=== PATIENT | male | born 1985 | race Caucasian/White ===

== ENCOUNTER 2018-07-05 05:18 | Observation (INO) | payer MEDICAID, OTHER ==
[2018-07-05 05:28] VITALS: O2SAT 96
--- NOTE | 2018-07-05 05:59 | ED PDOC ---
Arrival/HPI - General Chief Complaint: Chest Pain Time Seen by Provider: 07/05/18 05:56 Past Medical History - Infectious Disease Hx of Infectious Diseases: None - Tetanus Immunization Tetanus Immunization: Unknown - Psychiatric Hx Substance Use: Yes Family/Social History Smoking Status: Light Smoker < 10 Cigarettes Daily Hx Alcohol Use: No Hx Substance Use: Yes Substance used: cocaine Allergies/Home Meds Allergies/Adverse Reactions: Allergies No Known Allergies Allergy (Verified 07/05/18 05:21) Home Medications: Home Meds Medication Instructions Recorded Confirmed No Known Home Med 07/05/18 07/05/18 Physical Exam - Physical Exam Narrative Physical Exam (Text): Constitutional: No acute distress. Head: Normocephalic. Atraumatic. Eyes: PERRL. ENT: Moist mucous membranes. Neck: Supple. Cardiovascular: Regular rate. Chest: No tenderness. Respiratory: Clear to auscultation bilaterally. GI: Soft. Nontender. Nondistended. Back: No CVA tenderness. Musculoskeletal: No tenderness or swelling of extremities. Skin: No rash. Neurologic: Alert, no focal deficit. Vital Signs Temp Pulse Resp BP Pulse Ox 07/05/18 05:23 98.3 F 89 19 136/79 96 Medical Decision Making - RAD Interpretation Radiology Orders: 07/05/18 05:58 CHEST PORTABLE [RAD] Stat - Medication Orders Current Medication Orders: Aspirin (Aspirin) 325 mg PO STAT STA Stop: 07/05/18 05:59 Disposition/Present on Arrival - Present on Arrival History of DVT/PE: No History of Uncontrolled Diabetes: No Urinary Catheter: No History of Decub. Ulcer: No History Surgical Site Infection Following: None - Disposition
[2018-07-05 06:37] LABS: BASO # 0.01 K/mm3 (0.0-2.0); BASO % 0.1 % (0.0-3.0); EOS # 0.3 (0.0-0.7); EOS % 2.5 % (1.5-5.0); HEMOGLOBIN 16.6 g/dL (14.0-18.0); LYMPH # 3.1 (1.2-3.4); LYMPH % 26.6 % (22.0-35.0); MEAN CELL VOLUME 88.1 fl (80.0-105.0); MEAN CORPUSCULAR HEMOGLOBIN 31.4 pg (25.0-35.0); MEAN CORPUSCULAR HGB CONC 35.7 g/dl (31.0-37.0); MEAN PLATELET VOLUME 10.7 fl (7.0-11.0); MONO # 0.5 (0.1-0.6); MONO % 4.4 % (1.0-6.0); RBC 5.28 10^6/uL (3.5-6.1); RED CELL DISTRIBUTION WIDTH 12.3 % (11.5-14.5); WHITE BLOOD COUNT 11.8 10^3/uL (4.5-11.0)
[2018-07-05 06:46] LABS: TROPONIN I < 0.01 ng/mL
--- NOTE | 2018-07-05 06:46 | ED PDOC ---
Arrival/HPI - General Chief Complaint: Chest Pain Time Seen by Provider: 07/05/18 05:56 - History of Present Illness Narrative History of Present Illness (Text): 33 y/o M c no PMHx p/w chest pain x 4 hours. Midchest pressure, non radiating with L arm soreness, clammy skin, dyspnea. States used cocaine about 3 hours prior to this. Denies fever, vomiting. Past Medical History - Infectious Disease Hx of Infectious Diseases: None - Tetanus Immunization Tetanus Immunization: Unknown - Psychiatric Hx Substance Use: Yes Family/Social History Family/Social History: No Known Family HX Smoking Status: Light Smoker < 10 Cigarettes Daily Hx Alcohol Use: No Hx Substance Use: Yes Substance used: cocaine Allergies/Home Meds Allergies/Adverse Reactions: Allergies No Known Allergies Allergy (Verified 07/05/18 05:21) Review of Systems - Physician Review All systems were reviewed & negative as marked: Yes - Review of Systems Constitutional: absent: Fevers Gastrointestinal: absent: Vomiting Physical Exam - Physical Exam Narrative Physical Exam (Text): gen nad head nc/at eyes perrl ent mmm neck supple chest no tenderness cv reg rate lungs cta b/l abd soft, nt back no cva tenderness skin no rash neuro alert Vital Signs Temp Pulse Resp BP Pulse Ox 07/05/18 05:23 98.3 F 89 19 136/79 96 Medical Decision Making ED Course and Treatment: ekg 83 bpm, nsr, no ST elevations CXR no acute disease. ASA administered. Ready for admission, paged medical service, awaiting their call back. - RAD Interpretation Radiology Orders: 07/05/18 05:58 CHEST PORTABLE [RAD] Stat - Medication Orders Current Medication Orders: Discontinued Medications Aspirin (Aspirin) 325 mg PO STAT STA Stop: 07/05/18 05:59 Last Admin: 07/05/18 06:10 Dose: 325 mg Disposition/Present on Arrival - Present on Arrival Any Indicators Present on Arrival: No History of DVT/PE: No History of Uncontrolled Diabetes: No Urinary Catheter: No History of Decub. Ulcer: No History Surgical Site Infection Following: None - Disposition Have Diagnosis and Disposition been Completed?: Yes Diagnosis: Chest pain Disposition: HOSPITALIZED Disposition Time: 07:00 Patient Plan: Observation, Telemetry Condition: STABLE
[2018-07-05 06:55] LABS: ALB/GLOB RATIO 1.2 (1.1-1.8); ALBUMIN 4.1 g/dL (3.0-4.8); ALT/SGPT 132 U/L (7-56); AST/SGOT 50 U/L (17-59); BLOOD UREA NITROGEN 9 mg/dL (7-21); CALCIUM 8.9 mg/dL (8.4-10.5); GFR NON-AFRICAN AMERICAN > 60
--- NOTE | 2018-07-05 07:19 | ED PDOC ---
Physical Exam Vital Signs Temp Pulse Resp BP Pulse Ox 07/05/18 05:23 98.3 F 89 19 136/79 96 Medical Decision Making ED Course and Treatment: 07/05/18 07:17 received sign out from dr. hernandes at 0700. Patient to be admitted for chest pain, rule out acs with positive cocaine. Admit accepted by dr. mitchell to the hospitalist service. observation. - Lab Interpretations Lab Results: Troponin I < 0.01 ng/mL 07/05/18 06:10 Total Bilirubin 1.0 mg/dL (0.2-1.3) 07/05/18 06:10 AST 50 U/L (17-59) 07/05/18 06:10 ALT 132 U/L (7-56) H 07/05/18 06:10 Alkaline Phosphatase 113 U/L (38-126) 07/05/18 06:10 Total Protein 7.5 g/dL (5.8-8.3) 07/05/18 06:10 Albumin 4.1 g/dL (3.0-4.8) 07/05/18 06:10 Globulin 3.5 gm/dL 07/05/18 06:10 Albumin/Globulin Ratio 1.2 (1.1-1.8) 07/05/18 06:10 - RAD Interpretation Radiology Orders: 07/05/18 05:58 CHEST PORTABLE [RAD] Stat - Medication Orders Current Medication Orders: Discontinued Medications Aspirin (Aspirin) 325 mg PO STAT STA Stop: 07/05/18 05:59 Last Admin: 07/05/18 06:10 Dose: 325 mg Disposition/Present on Arrival - Present on Arrival Any Indicators Present on Arrival: No History of DVT/PE: No History of Uncontrolled Diabetes: No Urinary Catheter: No History of Decub. Ulcer: No History Surgical Site Infection Following: None - Disposition Have Diagnosis and Disposition been Completed?: Yes Diagnosis: Chest pain Disposition: HOSPITALIZED Disposition Time: 07:19 Patient Plan: Admission Condition: STABLE Discharge Instructions (ExitCare): Chest Pain (ED) Forms: [employer] ([place]ayan)
[2018-07-05] MEDS ORDERED: Potassium Chloride 20 mEq ER Tab PO STA (07:21)
--- NOTE | 2018-07-05 07:34 | CP.PCM.HP ---
<HectorSusanne - Last Filed: 07/05/18 08:19> History of Present Illness - History of Present Illness History of Present Illness: HISTORY & PHYSICAL NOTE FOR HOSPITALIST SERVICE- DR. RADHA Skinner Hector PGY1 33 y/o M with no significant PMHx presents to ED with complaints of R sided "pinching" like chest pain that started at 4am with associated "throbbing-like" L-sided bicep pain that lasted about 20 seconds and subsequently resolved. He reports he was "partying" yesterday around midnight, snorting cocaine, without any other drug use. He came home and was laying down on his right side when he noticed the pain. He reports he searched symptoms on internet which prompted his visit to ED. He denies any previous cardiac problems, no shortness of breath as a child, and doesn't have symptoms on exertion. Upon interview, he is denying any complaints and is resting comfortably. He has fiance at bedside. He denies fevers, chills, headache, dizziness, chest pain, palpitations, shortness of breath, nausea, vomiting, constipation, diarrhea, dysuria, hematuria. PMH: Denies All: NKDA PSH: Denies SH: snorts cocaine occasionally for several years, smokes 1pack/day x 3yrs. Denies ETOH, IV drug use. Hosp: Denies FH: Father: , hepatitis C, cirrhosis, cancer. Mother: alive, no PMH. Meds: Denies PMD: Dr. Mancilla, [facility] Present on Admission - Present on Admission Any Indicators Present on Admission: No Review of Systems - Review of Systems Review of Systems: per HPI Past Patient History - Infectious Disease Hx of Infectious Diseases: None - Tetanus Immunizations Tetanus Immunization: Unknown - Past Social History Smoking Status: Light Smoker < 10 Cigarettes Daily - PSYCHIATRIC Hx Substance Use: Yes - SURGICAL HISTORY Hx Surgeries: No Meds Home Medications: Home Medication List Medication Instructions Recorded Confirmed Type Aspirin [Ecotrin] 81 mg PO DAILY #30 tabec 07/05/18 Rx Blood Sugar Diagnostic [Blood 1 each MC TID 30 Days #90 strip 07/05/18 Rx Glucose Test] Blood-Glucose Meter [Easygluco] 1 each MC DAILY 1 Days #1 kit 07/05/18 Rx GlipiZIDE [Glucotrol] 5 mg PO ACB #30 tab 07/05/18 Rx Lancets [Onetouch Lancets] 1 each MC TID 30 Days #90 each 07/05/18 Rx Nicotine 14 mg/24 hr [Nicoderm CQ] 1 patch TD DAILY #30 patch 07/05/18 Rx Allergies/Adverse Reactions: Allergies Allergy/AdvReac Type Severity Reaction Status Date / Time No Known Allergies Allergy Verified 07/05/18 05:21 Results - Vital Signs Recent Vital Signs: Last Vital Signs Temp 98.3 F 07/05/18 05:23 Pulse 89 07/05/18 05:23 Resp 19 07/05/18 05:23 BP 136/79 07/05/18 05:23 Pulse Ox 96 07/05/18 05:23 - Labs Result Diagrams: 07/05/18 06:10 07/05/18 06:10 Labs: Laboratory Results - last 24 hr 07/05/18 07/05/18 06:10 06:10 WBC 11.8 H RBC 5.28 Hgb 16.6 Hct 46.5 MCV 88.1 MCH 31.4 MCHC 35.7 RDW 12.3 Plt Count 178 MPV 10.7 Neut % (Auto) 66.4 Lymph % (Auto) 26.6 [place] % (Auto) 4.4 Eos % (Auto) 2.5 Baso % (Auto) 0.1 Lymph # (Auto) 3.1 [place] # (Auto) 0.5 Eos # (Auto) 0.3 Baso # (Auto) 0.01 Absolute Neuts (auto) 7.82 H Sodium 136 Potassium 3.3 L Chloride 99 Carbon Dioxide 27 Anion Gap 14 BUN 9 Creatinine 0.8 Est GFR ( Amer) > 60 Est GFR (Non-Af Amer) > 60 Random Glucose 304 H* Calcium 8.9 Total Bilirubin 1.0 AST 50 ALT 132 H Alkaline Phosphatase 113 Total Creatine Kinase 214 Troponin I < 0.01 Total Protein 7.5 Albumin 4.1 Globulin 3.5 Albumin/Globulin Ratio 1.2 Assessment & Plan - Assessment and Plan (Free Text) Assessment: 33 y/o M with PMHx cocaine abuse admitted for chest pain and to rule out ACS Plan: Chest pain, r/o ACS EKG revealed NSR, No ST/T wave changes. Initial troponin (-). Given aspirin 325 in ED f/u repeat troponins Q6h, repeat EKG Cardiology consulted f/u Hgb A1C, TSH, FT4, lipid panel Elevated Glucose Denies hx of DM2 will f/u A1c Insulin sliding scale started. 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 UDS ordered for confirmation Nicotine patch ordered Hypokalemia Repleted with po KCl Hypomagnesemia repleted with MgSO4 IVPB GERD started pepcid DVT/GI PPx: SCD/pepcid Case reviewed with attending physician, Dr. Radha Young PGY1 <Tennille Vo - Last Filed: 07/06/18 13:41> Results - Vital Signs Recent Vital Signs: Last Vital Signs Temp 97.9 F 07/05/18 17:30 Pulse 73 07/05/18 17:30 Resp 18 07/05/18 17:30 BP 123/81 07/05/18 17:30 Pulse Ox 96 07/05/18 07:47 - Labs Result Diagrams: 07/05/18 06:10 07/05/18 06:10 Labs: Laboratory Results - last 24 hr 07/05/18 07/05/18 07/05/18 13:15 14:10 14:10 POC Glucose (mg/dL) Troponin I < 0.01 Urine Color Yellow Urine Appearance Clear Urine pH 6.0 Ur Specific [place] 1.025 Urine Protein Negative Urine Glucose (UA) >=1000 Urine Ketones Trace H Urine Blood Negative Urine Nitrate Negative Urine Bilirubin Negative Urine Urobilinogen 1.0 H Ur Leukocyte Esterase Negative Urine Opiates Screen Negative Urine Methadone Screen Negative Ur Barbiturates Screen Negative Ur Phencyclidine Scrn Negative Ur Amphetamines Screen Negative U Benzodiazepines Scrn Negative U Oth Cocaine Metabols Positive H U Cannabinoids Screen Negative 07/05/18 07/05/18 16:10 17:20 POC Glucose (mg/dL) 331 H Troponin I < 0.01 Urine Color Urine Appearance Urine pH Ur Specific [place] Urine Protein Urine Glucose (UA) Urine Ketones Urine Blood Urine Nitrate Urine Bilirubin Urine Urobilinogen Ur Leukocyte Esterase Urine Opiates Screen Urine Methadone Screen Ur Barbiturates Screen Ur Phencyclidine Scrn Ur Amphetamines Screen U Benzodiazepines Scrn U Oth Cocaine Metabols U Cannabinoids Screen Attending/Attestation - Attestation I have personally seen and examined this patient.: Yes I have fully participated in the care of the patient.: Yes I have reviewed all pertinent clinical information: Yes Notes (Text): 07/06/18 13:37 Attending note ; Patient seen and examined with resident in ER. Patient's girlfriend by the bedside. Patient is currently alert and awake. Denies any chest pain, shortness of breath. Denies any nausea, vomiting Denies any urinary, bowel symptoms. Patient is a 33-year-old male with PMHx of PTSD, anxiety, smoking presents to ED with complaints of R sided "pinching" like chest pain that started at 4am with associated "throbbing-like" L-sided bicep pain that lasted about 20 seconds and subsequently resolved. He reports he was "partying" yesterday around mid night, snorting cocaine. 1. Chest pain; EKG showed no acute ST-T changes. Troponins times negative possibly related to vasospasm caused by cocaine. Admit to telemetry. Cardiac enzymes x3 ordered. Cardiology evaluation requested. 2. cocaine abuse; complete cessation is strongly advised . 3. Active smoking; smoking cessation is strongly advised. 4. PTSD; needs follow-up with psychiatrist as outpatient. 5. Elevated blood sugar. Dietary education given . Hemoglobin A1c ordered. Upon discharge the patient will follow up with [facility]. 07/06/18 13:40
[2018-07-05 08:12] LABS: FREE T4 1.49 ng/dL (0.78-2.19)
--- NOTE | 2018-07-05 08:18 | RAD ---
HISTORY: r/o PNA COMPARISON: None available. TECHNIQUE: Chest, one view. FINDINGS: Examination limited by habitus. LUNGS: No focal consolidation. PLEURA: No significant pleural effusion identified. No definite pneumothorax . CARDIOVASCULAR: The cardiomediastinal silhouette appears within normal limits of size. No significant atherosclerotic calcification present. OSSEOUS STRUCTURES: No acute osseous abnormality identified. VISUALIZED UPPER ABDOMEN: Unremarkable. OTHER FINDINGS: None. IMPRESSION: No acute findings identified.
[2018-07-05] MEDS ORDERED: Magnesium Sulfate 2 gm/50 ml 2 GM/50 ML BAG IVPB ONE (08:39)
[2018-07-05] MEDS: Insulin Reg-LOW-Coverage SC SCH ×2 (12:09→18:22)
[2018-07-05 12:55] VITALS: RESP 18
[2018-07-05] MEDS ORDERED: Potassium Chloride 20 mEq ER Tab PO ONE (14:09)
[2018-07-05 14:15] LABS: URINE BILIRUBIN NEGATIVE (NEGATIVE); URINE BLOOD NEGATIVE (NEGATIVE); URINE GLUCOSE (UA) >=1000 mg/dL (NEGATIVE); URINE LEUKOCYTE ESTERASE NEGATIVE Leu/uL (NEGATIVE); URINE PROTEIN NEGATIVE mg/dL (<30 mg/dL)
[2018-07-05 14:21] LABS: URINE APPEARANCE CLEAR (CLEAR); URINE COLOR YELLOW (YELLOW)
[2018-07-05 14:36] VITALS: BMI 34.0
[2018-07-05] MEDS ORDERED: Pneumococcal 23-Valent Vaccine IM ONE (14:36)
[2018-07-05 14:39] LABS: BARBITURATES, UR NEGATIVE (NEGATIVE)
[2018-07-05 14:46] LABS: BENZODIAZEPINES, UR NEGATIVE (NEGATIVE); OPIATES, UR NEGATIVE (NEGATIVE); PHENCYCLIDINE, UR NEGATIVE (NEGATIVE)
--- NOTE | 2018-07-05 15:44 | CP.PCM.DIS ---
<Susanne Young - Last Filed: 07/06/18 13:44> Provider - Provider Date of Admission: 07/05/18 07:15 Attending physician: Tennille Vo MD Consults: 07/05/18 07:27 Cardiology Consult Stat Comment: Consulting Provider: Himanshu Sánchez Consulting Physician: Himanshu Sánchez Reason for Consult: CP r/o ACS, cocaine use 07/05/18 12:10 Diabetic Education Referral Routine Comment: Physician Instructions: Reason For Exam: new ly diagnosed diabetic 07/05/18 14:36 Respiratory Therapy Referral Routine Comment: smokes 1 ppd Physician Instructions: Reason For Exam: assess 07/05/18 14:46 Diabetic Education Referral Routine Comment: blood sugar 263 Physician Instructions: Reason For Exam: assess Time Spent in preparation of Discharge (in minutes): 45 Diagnosis - Discharge Diagnosis (1) Chest pain Status: Resolved (2) Cocaine abuse Status: Resolved (3) Diabetes Status: Chronic (4) Newly diagnosed diabetes Status: Chronic (5) Tobacco use disorder Status: Chronic Hospital Course - Lab Results Lab Results: Most Recent Lab Values WBC 11.8 10^3/uL (4.5-11.0) H 07/05/18 06:10 RBC 5.28 10^6/uL (3.5-6.1) 07/05/18 06:10 Hgb 16.6 g/dL (14.0-18.0) 07/05/18 06:10 Hct 46.5 % (42.0-52.0) 07/05/18 06:10 MCV 88.1 fl (80.0-105.0) 07/05/18 06:10 MCH 31.4 pg (25.0-35.0) 07/05/18 06:10 MCHC 35.7 g/dl (31.0-37.0) 07/05/18 06:10 RDW 12.3 % (11.5-14.5) 07/05/18 06:10 Plt Count 178 10^3/uL (120.0-450.0) 07/05/18 06:10 MPV 10.7 fl (7.0-11.0) 07/05/18 06:10 Neut % (Auto) 66.4 % (50.0-68.0) 07/05/18 06:10 Lymph % (Auto) 26.6 % (22.0-35.0) 07/05/18 06:10 [place] % (Auto) 4.4 % (1.0-6.0) 07/05/18 06:10 Eos % (Auto) 2.5 % (1.5-5.0) 07/05/18 06:10 Baso % (Auto) 0.1 % (0.0-3.0) 07/05/18 06:10 Lymph # (Auto) 3.1 (1.2-3.4) 07/05/18 06:10 [place] # (Auto) 0.5 (0.1-0.6) 07/05/18 06:10 Eos # (Auto) 0.3 (0.0-0.7) 07/05/18 06:10 Baso # (Auto) 0.01 K/mm3 (0.0-2.0) 07/05/18 06:10 Absolute Neuts (auto) 7.82 (1.4-6.5) H 07/05/18 06:10 Sodium 136 mmol/L (132-148) 07/05/18 06:10 Potassium 3.3 mmol/L (3.6-5.0) L 07/05/18 06:10 Chloride 99 mmol/L (98-107) 07/05/18 06:10 Carbon Dioxide 27 mmol/L (21-33) 07/05/18 06:10 Anion Gap 14 (10-20) 07/05/18 06:10 BUN 9 mg/dL (7-21) 07/05/18 06:10 Creatinine 0.8 mg/dl (0.8-1.5) 07/05/18 06:10 Est GFR ( Amer) > 60 07/05/18 06:10 Est GFR (Non-Af Amer) > 60 07/05/18 06:10 POC Glucose (mg/dL) 263 mg/dL (65-110) H 07/05/18 11:24 Random Glucose 304 mg/dL (70-110) H* 07/05/18 06:10 Hemoglobin A1c 10.0 % (4.2-6.5) H 07/05/18 06:22 Calcium 8.9 mg/dL (8.4-10.5) 07/05/18 06:10 Phosphorus 4.1 mg/dL (2.5-4.5) 07/05/18 06:22 Magnesium 1.6 mg/dL (1.7-2.2) L 07/05/18 06:22 Total Bilirubin 1.0 mg/dL (0.2-1.3) 07/05/18 06:10 AST 50 U/L (17-59) 07/05/18 06:10 ALT 132 U/L (7-56) H 07/05/18 06:10 Alkaline Phosphatase 113 U/L (38-126) 07/05/18 06:10 Total Creatine Kinase 214 U/L (35-230) 07/05/18 06:10 Troponin I < 0.01 ng/mL 07/05/18 13:15 Total Protein 7.5 g/dL (5.8-8.3) 07/05/18 06:10 Albumin 4.1 g/dL (3.0-4.8) 07/05/18 06:10 Globulin 3.5 gm/dL 07/05/18 06:10 Albumin/Globulin Ratio 1.2 (1.1-1.8) 07/05/18 06:10 Triglycerides 164 mg/dL (35-160) H 07/05/18 06:22 Cholesterol 154 mg/dL (130-200) 07/05/18 06:22 LDL Cholesterol Direct 107 mg/dL (0-129) 07/05/18 06:22 HDL Cholesterol 33 mg/dL (29-60) 07/05/18 06:22 Free T4 1.49 ng/dL (0.78-2.19) 07/05/18 06:22 TSH 3rd Generation 2.92 mIU/mL (0.46-4.68) 07/05/18 06:22 Urine Color Yellow (YELLOW) 07/05/18 14:10 Urine Appearance Clear (CLEAR) 07/05/18 14:10 Urine pH 6.0 (4.7-8.0) 07/05/18 14:10 Ur Specific [place] 1.025 (1.005-1.035) 07/05/18 14:10 Urine Protein Negative mg/dL (<30 mg/dL) 07/05/18 14:10 Urine Glucose (UA) >=1000 mg/dL (NEGATIVE) 07/05/18 14:10 Urine Ketones Trace mg/dL (NEGATIVE) H 07/05/18 14:10 Urine Blood Negative (NEGATIVE) 07/05/18 14:10 Urine Nitrate Negative (NEGATIVE) 07/05/18 14:10 Urine Bilirubin Negative (NEGATIVE) 07/05/18 14:10 Urine Urobilinogen 1.0 E.U./dL (<1 E.U./dL) H 07/05/18 14:10 Ur Leukocyte Esterase Negative Kevin/uL (NEGATIVE) 07/05/18 14:10 Urine Opiates Screen Negative (NEGATIVE) 07/05/18 14:10 Urine Methadone Screen Negative (NEGATIVE) 07/05/18 14:10 Ur Barbiturates Screen Negative (NEGATIVE) 07/05/18 14:10 Ur Phencyclidine Scrn Negative (NEGATIVE) 07/05/18 14:10 Ur Amphetamines Screen Negative (NEGATIVE) 07/05/18 14:10 U Benzodiazepines Scrn Negative (NEGATIVE) 07/05/18 14:10 U Oth Cocaine Metabols Positive (NEGATIVE) H 07/05/18 14:10 U Cannabinoids Screen Negative (NEGATIVE) 07/05/18 14:10 - Hospital Course Hospital Course: Upon Admission: 33 y/o M with no significant PMHx presents to ED with complaints of R sided "pinching" like chest pain that started at 4am with associated "throbbing-like" L-sided bicep pain that lasted about 20 seconds and subsequently resolved. He reports he was "partying" yesterday around midnight, snorting cocaine, without any other drug use. He came home and was laying down on his right side when he noticed the pain. He reports he searched symptoms on internet which prompted his visit to ED. He denies any previous cardiac problems, no shortness of breath as a child, and doesn't have symptoms on exertion. Upon interview, he is denying any complaints and is resting comfortably. He has fiance at bedside. Hospital Course: Pt's EKG showed no ST/T wave changes. Troponin levels were (-) x 3. Pt's chest pain had resolved. He had no episodes of chest pain while in the hospital. Pts initial glucose in ED was 304 and his Hgb A1c was found to be 10%. Pts UDS was positive for cocaine. He was evaluated and deemed stable for discharged by cardiology. Pt was counselled extensively on cocaine cessation, tobacco cessation and diabetes control. All questions were answered by patient and Upon Discharge: Pt is feeling better. Vital signs/labs wnl. Troponins negative x 3. Cardiology saw patient and deemed pt stable to d/c. Pt to discharged with glipizide 5mg, aspirin 81mg, nicotine patch Discharge Exam - Head Exam Head Exam: ATRAUMATIC, NORMAL INSPECTION - Eye Exam Eye Exam: EOMI, Normal appearance - ENT Exam ENT Exam: Mucous Membranes Moist - Neck Exam Neck exam: Normal Inspection - Respiratory Exam Respiratory Exam: NORMAL BREATHING PATTERN, UNREMARKABLE - Cardiovascular Exam Cardiovascular Exam: REGULAR RHYTHM, +S1, +S2 - GI/Abdominal Exam GI & Abdominal Exam: Normal Bowel Sounds, Soft - Extremities Exam Extremities exam: normal inspection - Back Exam Back exam: NORMAL INSPECTION - Neurological Exam Neurological exam: Alert, Oriented x3 - Psychiatric Exam Psychiatric exam: Normal Affect, Normal Mood - Skin Skin Exam: Dry, Intact, Warm Discharge Plan - Discharge Medications Prescriptions: Aspirin [Ecotrin] 81 mg PO DAILY #30 tabec Blood Sugar Diagnostic [Blood Glucose Test] 1 each MC TID 30 Days #90 strip Blood-Glucose Meter [Easygluco] 1 each MC DAILY 1 Days #1 kit GlipiZIDE [Glucotrol] 5 mg PO ACB #30 tab Lancets [Onetouch Lancets] 1 each MC TID 30 Days #90 each Nicotine 14 mg/24 hr [Nicoderm CQ] 1 patch TD DAILY #30 patch - Follow Up Plan Condition: STABLE Disposition: HOME/ ROUTINE Instructions: Cocaine Use Disorder, Chest Pain (DC), Diabetes Type 2 (DC), Drug Abuse and Drug Addiction (DC), Diabetic Meal Planning , Heart Disease in Diabetics , Diabetes and Diet, How to Keep Track of Your Blood Sugar Additional Instructions: Please follow up with your primary care doctor within 1 week of discharge from the hospital. Please discuss your hospital stay. Please discuss your diagnosis of diabetes Please discuss an outpatient echocardiogram Please consume a carbohydrate consistent diet. Please avoid sugary foods and drinks Please exercise regularly Please stop using cocaine Please stop smoking You have been started on new medications: Aspirin 81mg. Please take 1 tablet by mouth daily Glipizide 5mg. Please take 1 tablet by mouth before breakfast daily Please take these medications as directed If your symptoms return or you experience new symptoms, please go to the nearest emergency room Referrals: Pavel Mancilla MD [Medical Doctor] - Himanshu Sánchez MD [Staff Provider] - <Tennille Vo - Last Filed: 07/06/18 15:58> Provider - Provider Date of Admission: 07/05/18 07:15 Attending physician: Tennille Vo MD Consults: 07/05/18 07:27 Cardiology Consult Stat Comment: Consulting Provider: Himanshu Sánchez Consulting Physician: Himanshu Sánchez Reason for Consult: CP r/o ACS, cocaine use 07/05/18 12:10 Diabetic Education Referral Routine Comment: Physician Instructions: Reason For Exam: new ly diagnosed diabetic 07/05/18 14:36 Respiratory Therapy Referral Routine Comment: smokes 1 ppd Physician Instructions: Reason For Exam: assess 07/05/18 14:46 Diabetic Education Referral Routine Comment: blood sugar 263 Physician Instructions: Reason For Exam: assess Hospital Course - Lab Results Lab Results: Most Recent Lab Values WBC 11.8 10^3/uL (4.5-11.0) H 07/05/18 06:10 RBC 5.28 10^6/uL (3.5-6.1) 07/05/18 06:10 Hgb 16.6 g/dL (14.0-18.0) 07/05/18 06:10 Hct 46.5 % (42.0-52.0) 07/05/18 06:10 MCV 88.1 fl (80.0-105.0) 07/05/18 06:10 MCH 31.4 pg (25.0-35.0) 07/05/18 06:10 MCHC 35.7 g/dl (31.0-37.0) 07/05/18 06:10 RDW 12.3 % (11.5-14.5) 07/05/18 06:10 Plt Count 178 10^3/uL (120.0-450.0) 07/05/18 06:10 MPV 10.7 fl (7.0-11.0) 07/05/18 06:10 Neut % (Auto) 66.4 % (50.0-68.0) 07/05/18 06:10 Lymph % (Auto) 26.6 % (22.0-35.0) 07/05/18 06:10 [place] % (Auto) 4.4 % (1.0-6.0) 07/05/18 06:10 Eos % (Auto) 2.5 % (1.5-5.0) 07/05/18 06:10 Baso % (Auto) 0.1 % (0.0-3.0) 07/05/18 06:10 Lymph # (Auto) 3.1 (1.2-3.4) 07/05/18 06:10 [place] # (Auto) 0.5 (0.1-0.6) 07/05/18 06:10 Eos # (Auto) 0.3 (0.0-0.7) 07/05/18 06:10 Baso # (Auto) 0.01 K/mm3 (0.0-2.0) 07/05/18 06:10 Absolute Neuts (auto) 7.82 (1.4-6.5) H 07/05/18 06:10 Sodium 136 mmol/L (132-148) 07/05/18 06:10 Potassium 3.3 mmol/L (3.6-5.0) L 07/05/18 06:10 Chloride 99 mmol/L (98-107) 07/05/18 06:10 Carbon Dioxide 27 mmol/L (21-33) 07/05/18 06:10 Anion Gap 14 (10-20) 07/05/18 06:10 BUN 9 mg/dL (7-21) 07/05/18 06:10 Creatinine 0.8 mg/dl (0.8-1.5) 07/05/18 06:10 Est GFR ( Amer) > 60 07/05/18 06:10 Est GFR (Non-Af Amer) > 60 07/05/18 06:10 POC Glucose (mg/dL) 331 mg/dL (65-110) H 07/05/18 16:10 Random Glucose 304 mg/dL (70-110) H* 07/05/18 06:10 Hemoglobin A1c 10.0 % (4.2-6.5) H 07/05/18 06:22 Calcium 8.9 mg/dL (8.4-10.5) 07/05/18 06:10 Phosphorus 4.1 mg/dL (2.5-4.5) 07/05/18 06:22 Magnesium 1.6 mg/dL (1.7-2.2) L 07/05/18 06:22 Total Bilirubin 1.0 mg/dL (0.2-1.3) 07/05/18 06:10 AST 50 U/L (17-59) 07/05/18 06:10 ALT 132 U/L (7-56) H 07/05/18 06:10 Alkaline Phosphatase 113 U/L (38-126) 07/05/18 06:10 Total Creatine Kinase 214 U/L (35-230) 07/05/18 06:10 Troponin I < 0.01 ng/mL 07/05/18 17:20 Total Protein 7.5 g/dL (5.8-8.3) 07/05/18 06:10 Albumin 4.1 g/dL (3.0-4.8) 07/05/18 06:10 Globulin 3.5 gm/dL 07/05/18 06:10 Albumin/Globulin Ratio 1.2 (1.1-1.8) 07/05/18 06:10 Triglycerides 164 mg/dL (35-160) H 07/05/18 06:22 Cholesterol 154 mg/dL (130-200) 07/05/18 06:22 LDL Cholesterol Direct 107 mg/dL (0-129) 07/05/18 06:22 HDL Cholesterol 33 mg/dL (29-60) 07/05/18 06:22 Free T4 1.49 ng/dL (0.78-2.19) 07/05/18 06:22 TSH 3rd Generation 2.92 mIU/mL (0.46-4.68) 07/05/18 06:22 Urine Color Yellow (YELLOW) 07/05/18 14:10 Urine Appearance Clear (CLEAR) 07/05/18 14:10 Urine pH 6.0 (4.7-8.0) 07/05/18 14:10 Ur Specific [place] 1.025 (1.005-1.035) 07/05/18 14:10 Urine Protein Negative mg/dL (<30 mg/dL) 07/05/18 14:10 Urine Glucose (UA) >=1000 mg/dL (NEGATIVE) 07/05/18 14:10 Urine Ketones Trace mg/dL (NEGATIVE) H 07/05/18 14:10 Urine Blood Negative (NEGATIVE) 07/05/18 14:10 Urine Nitrate Negative (NEGATIVE) 07/05/18 14:10 Urine Bilirubin Negative (NEGATIVE) 07/05/18 14:10 Urine Urobilinogen 1.0 E.U./dL (<1 E.U./dL) H 07/05/18 14:10 Ur Leukocyte Esterase Negative Kevin/uL (NEGATIVE) 07/05/18 14:10 Urine Opiates Screen Negative (NEGATIVE) 07/05/18 14:10 Urine Methadone Screen Negative (NEGATIVE) 07/05/18 14:10 Ur Barbiturates Screen Negative (NEGATIVE) 07/05/18 14:10 Ur Phencyclidine Scrn Negative (NEGATIVE) 07/05/18 14:10 Ur Amphetamines Screen Negative (NEGATIVE) 07/05/18 14:10 U Benzodiazepines Scrn Negative (NEGATIVE) 07/05/18 14:10 U Oth Cocaine Metabols Positive (NEGATIVE) H 07/05/18 14:10 U Cannabinoids Screen Negative (NEGATIVE) 07/05/18 14:10 Attending/Attestation - Attestation I have personally seen and examined this patient.: Yes I have fully participated in the care of the patient.: Yes I have reviewed all pertinent clinical information, including history, physical exam and plan: Yes Notes (Text): 07/06/18 15:57 Attending note ; Patient seen and examined with resident. Patient's girlfriend by the bedside. Patient is currently alert and awake. Denies any chest pain, shortness of breath. Denies any nausea, vomiting Denies any urinary, bowel symptoms. Patient is a 33-year-old male with PMHx of PTSD, anxiety, smoking presents to ED with complaints of R sided "pinching" like chest pain that started at 4am with associated "throbbing-like" L-sided bicep pain that lasted about 20 seconds and subsequently resolved. He reports he was "partying" yesterday around midnight, snorting cocaine. 1. Chest pain; EKG showed no acute ST-T changes. Troponins times negative possibly related to vasospasm caused by cocaine. Cardiac enzymes x3 negative. Cardiology evaluation appreciated. Outpatient stress test recommended. 2. cocaine abuse; complete cessation is strongly advised . 3. Active smoking; smoking cessation is strongly advised. 4. PTSD; needs follow-up with psychiatrist as outpatient. 5. Elevated blood sugar. Dietary education given . Hemoglobin A1c is 10. Started on glipizide. Prescription for glucometer and supplies given. Advised to follow-up with PMD within 3 to 5 days. Patient will be discharged home today. Upon discharge the patient will follow up with [place] [facility]. 07/06/18 15:58
--- NOTE | 2018-07-05 16:17 | CARD ---
APPROVED REPORT Date of service: 07/05/2018 EKG Measurement Heart [id number] CT [id number] [id number] <Conclusion> Normal sinus rhythm Moderate voltage criteria for LVH, may be normal variant Borderline ECG
[2018-07-05 17:30] VITALS: BP 123/81; PULSE 73; TEMP 97.9
--- NOTE | 2018-07-05 22:14 | CON ---
DATE: 07/05/2018 LOCATION: The patient is in room 261, bed 2. REASON FOR CONSULTATION: Chest pain. HISTORY OF PRESENT ILLNESS: A 33-year-old male admitted with the history that he has three types of pain, one was the numbness of the left upper arm, and second was the sharp pain on the anterior axillary line of right chest which was only for few secondary then he had tightness in the epigastric area and at times it was also throbbing like pain. The patient has no prior history of exertional chest pain, this pain lasted about 20 minutes except the pinching pain on the right chest was only for 1 or 2 seconds. The patient denies any nausea or vomiting associated with this episode. Denies any dizziness or palpitation. The patient stated that he was in a constitution party last night and he was snorting cocaine. The patient right now is free of all those pains. Denies any shortness of breath or palpitation. PAST MEDICAL HISTORY: Not significant. PERSONAL HISTORY: Smokes one pack a day and denies drinking, but has history of snorting of cocaine occasionally for several years off and on. No IV drug abuse. ALLERGIES: DENIES ANY ALLERGIES. MEDICATIONS: He was not taking any medication at home. FAMILY HISTORY: Father had cirrhosis of liver and cardiac problems. REVIEW OF SYSTEMS: All the systems reviewed, positive mentioned in the history, others were negative. PHYSICAL EXAMINATION: VITAL SIGNS: Blood pressure 131/64, respirations 17, pulse 79 and temperature 98.3. HEENT: Head is normocephalic. Eyes, pupil normal. Conjunctiva normal. Nose and throat normal. NECK: JVP low. Carotid equal. THORAX: AP diameter normal. LUNGS: Clear. CARDIOVASCULAR: S1 and S2. ABDOMEN: Soft. No tenderness. No organomegaly. Bowel sounds normal. EXTREMITIES: No clubbing. No cyanosis. LABORATORY DATA: WBC 11.8, hemoglobin 16.6, hematocrit 46.5 and platelet 178. Sodium 136, potassium 3.3, sugar on admission 304 and repeat sugar 263, hemoglobin A1C 10, calcium 8.9, phosphorous 4.1, magnesium 1.6, AST 50, ALT 132. Troponin x2 less than 0.01. Triglyceride 164, cholesterol 154, LDL 107. Free T4 is 1.49 and TSH 2.92. Chest x-ray, no acute findings. EKG, regular sinus rhythm. DIAGNOSES: Acute chest pain, atypical probably related to snorting of cocaine and diabetes mellitus. RECOMMENDATIONS: Plan is to do an echocardiogram and the patient will have nuclear stress test as outpatient. Explained to the patient, he agrees to come as outpatient for stress test, advised him to stop using cocaine and stop smoking and also told him the diet for diabetic and low cholesterol and low triglyceride diet. Reassess after 2 months, if still LDL is above 70 then suggest additional statin therapy. The patient's potassium is low and magnesium is low. The patient already received potassium 40 mEq stat dose this morning also getting IV magnesium, famotidine 20 mg p.o. b.i.d., glipizide 5 mg a.c.b. Repeat labs in the morning. We will follow with you. Himanshu Sánchez MD
== END 2018-07-05 19:08 | disposition home or self-care (01) ==
LOC: ED 05:18 → ERH 07:15 → 2RNO 08:34
PROVIDERS: ADMIT Internal Medicine; ATTEND Internal Medicine
DX: R07.89 Other chest pain (principal); E11.9 Type 2 diabetes mellitus without complications; F14.10 Cocaine abuse, uncomplicated; F43.10 Post-traumatic stress disorder, unspecified; F17.210 Nicotine dependence, cigarettes, uncomplicated; Z79.82 Long term (current) use of aspirin
CPT/HCPCS: 36415; 71045; 80053; 80061; 80324; 80345; 80346; 80349; 80353; 80358; 80361; 81003; 82550; 82948; 83036; 83735; 83992; 84100; 84439; 84443; 84484; 85025; 93005; 99283; G0378